=== PATIENT | female | born 1955 | race Caucasian/White ===

== ENCOUNTER → 2022-04-09 | Day surgery (SDC) | payer OTHER ==
[~2022-04-09] MED LIST: DEXILANT60 MG PO; LEVOTHYROXINE75 MC1 PO; MIRALAX; VITAMIN D3
== END | disposition home or self-care (01) ==
LOC: OR 06:52
DX: R19.4 Change in bowel habit (principal); D12.0 Benign neoplasm of cecum; K44.9 Diaphragmatic hernia without obstruction or gangrene; K21.9 Gastro-esophageal reflux disease without esophagitis; M19.90 Unspecified osteoarthritis, unspecified site; I10 Essential (primary) hypertension; E03.9 Hypothyroidism, unspecified; R73.03 Prediabetes; Z88.5 Allergy status to narcotic agent; Z80.0 Family history of malignant neoplasm of digestive organs
CPT/HCPCS: J2001; J2704